=== PATIENT | female | born 1955 | race Caucasian/White ===

== ENCOUNTER 2017-12-01 11:56 | Observation (INO) | payer SELFPAY ==
[~2017-12-01] VITALS: Ht 165.1 cm; Wt 64.5 kg
--- NOTE | 2017-12-01 13:21 | Diagnostic Imaging Report ---
Examination: CT head without contrast Clinical Indication: Fall. Weakness. Unsteady gait. Dizziness. History of stroke 5 years ago. Technique: Transaxial noncontrast images from the skull base through the vertex were obtained. Sagittal and coronal reformatted images were done. Dose modulation, iterative reconstruction, and/or weight based adjustment of the mA/kV was utilized to reduce the radiation dose to as low as reasonably achievable. Comparison: Head CT performed October 17, 2015. Findings: Scalp: No abnormalities. Bones: Intact. No fractures. No blastic or lytic lesions. Brain sulci: Moderate volume loss for patient's age. Ventricles: No hydrocephalus. Extra-axial space: No abnormalities. Parenchyma: Again demonstrated are confluent areas of low-attenuation within subcortical and periventricular white matter, nonspecific, but could represent microvascular ischemic disease. Cortical-based area of chronic encephalomalacia is demonstrated in the right middle and inferior occipital lobes. A chronic lacunar infarct is again demonstrated in the right striatocapsular region. No masses, hemorrhage, or acute cortical based vascular insults. Suprasellar region: No abnormalities. Craniocervical junction: The foramen magnum is patent. No Chiari one malformation. Incidental findings: Atherosclerotic calcification of the cavernous and supraclinoid internal carotid arteries. Impression: 1. No new acute intracranial finding when compared to prior head CT performed October 17, 2015. 2. Unchanged mild chronic microvascular ischemic change. Chronic right CELLO TEACHER territory infarct and right striatocapsular region lacunar infarct. Moderate generalized volume loss. Signed by: Dr. Teresa Zamorano M.D. on 12/01/2017 1:17 PM
--- NOTE | 2017-12-01 13:27 | Diagnostic Imaging Report ---
Examination: CT CERVICAL SPINE WITHOUT CONTRAST HISTORY:Fall. Weakness. COMPARISON:None. TECHNIQUE: Multidetector helical axial images were obtained without contrast from the foramen magnum to T1. Coronal and sagittal reformatted images were done. Bone and soft tissue windows were evaluated. Dose modulation, iterative reconstruction, and/or weight based adjustment of the mA/kV was utilized to reduce the radiation dose to as low as reasonably achievable. FINDINGS: Alignment:Normal alignment with straightening of normal lordosis. Vertebrae: Normal height and density. No acute fracture, infection or neoplasm. Disc space heights: Normal height. Caliber of spinal canal: Developmentally normal. Posterior fossa and craniocervical junction: Foramen magnum patent. No Chiari 1 malformation. Soft tissues: No abnormality. Degenerative changes: Anterior hyperostosis from C4 through T1. Degenerative left facet hyperostosis and fusion of the C2, C3, C4 and C5 vertebrae. Disc osteophyte complexes at C5-C6 and C6-C7 with moderate bilateral foraminal narrowing at C6-C7. No canal stenosis. The remaining cervical levels demonstrate no disc bulge/ herniation or canal stenosis. IMPRESSION: 1. No acute abnormalities. 2. Degenerative changes, as above. Signed by: Dr. Teresa Zamorano M.D. on 12/01/2017 1:23 PM
--- NOTE | 2017-12-01 13:39 | Diagnostic Imaging Report ---
Examination: Single AP view of the chest. COMPARISON: None. INDICATION: Fall DISCUSSION: The lungs are well-inflated. No focal airspace consolidation, pleural effusion, or pneumothorax. Cardiomediastinal contour and pulmonary vasculature are within normal limits. No acute osseous abnormalities. IMPRESSION: 1. No acute cardiopulmonary abnormalities. Signed by: Dr. Nikhil Fernandez M.D. on 12/01/2017 1:36 PM
[2017-12-01 13:58] LABS: BASOPHILS # (AUTO) 0.1 (0.0-0.1); BASOPHILS % 0.6 % (0.0-1.0); EOSINOPHILS # (AUTO) 0.2 (0.0-0.4); EOSINOPHILS % 1.8 % (0.0-6.0); HEMATOCRIT 44.4 % (34.2-44.1); HEMOGLOBIN 14.6 g/dL (12.0-16.0); LYMPHOCYTES # (AUTO) 3.4 (1.0-3.2); LYMPHOCYTES % 30.6 % (18.0-39.1); MEAN CORPUSCULAR HEMOGLOBIN 28.1 pg (28-32); MEAN CORPUSCULAR HGB CONC 32.9 g/dL (31-35); MEAN CORPUSCULAR VOLUME 85.5 fL (81-99); MONOCYTES # (AUTO) 0.6 (0.2-0.8); MONOCYTES % 5.6 % (4.4-11.3); NEUTROPHILS # (AUTO) 6.8 (2.1-6.9); PLATELET COUNT 191 x10e3/uL (140-360); RED BLOOD COUNT 5.19 x10e6/uL (3.6-5.1); RED CELL DISTRIBUTION WIDTH 12.9 % (11.7-14.4)
[2017-12-01 14:11] LABS: INR 0.97; PROTHROMBIN TIME 12.1 seconds (11.9-14.5)
[2017-12-01 14:14] LABS: PARTIAL THROMBOPLASTIN TIME 22.1 seconds (23.8-35.5)
[2017-12-01 14:26] LABS: ALANINE AMINOTRANSFERASE 12 IU/L (0-55); ALBUMIN 3.6 g/dL (3.5-5.0); ALBUMIN/GLOBULIN RATIO 0.9 (0.8-2.0); ALKALINE PHOSPHATASE 76 IU/L (40-150); ANION GAP 14.5 mmol/L (8-16); BLOOD UREA NITROGEN 11 mg/dL (7-26); BUN/CREATININE RATIO 10 (6-25); CALCIUM 9.6 mg/dL (8.4-10.2); CARBON DIOXIDE 25 mmol/L (22-29); CHLORIDE 93 mmol/L (98-107); CREATINE KINASE 56 IU/L (29-168); CREATININE, SERUM 1.05 mg/dL (0.57-1.11); EST GLOMERULAR FILTRATION RATE 53 ML/MIN (60-); LIPASE 20 U/L (8-78); POTASSIUM 4.5 mmol/L (3.5-5.1); SODIUM 128 mmol/L (136-145)
[2017-12-01 14:30] LABS: GLUCOSE 574 mg/dL (74-118)
[2017-12-01 14:46] LABS: THYROID STIMULATING HORMONE 4.497 uIU/mL (0.350-4.940)
[2017-12-01] MEDS: INSULIN REGULAR, HUMAN 100 UNIT/1 ML 3ML VIAL IV ONE ×2 (14:54→15:02)
[2017-12-01 14:57] LABS: BILIRUBIN,URINE NEGATIVE (NEGATIVE); CLARITY,URINE SL CLOUDY (CLEAR); COLOR,URINE YELLOW (YELLOW); KETONES,URINE NEGATIVE (NEGATIVE); LEUKOCYTE ESTERASE ,URINE NEGATIVE (NEGATIVE); NITRITE,URINE POSITIVE (NEGATIVE); PROTEIN,URINE DIPSTICK NEGATIVE (NEGATIVE); URINE UROBILINOGEN 0.2 mg/dL (0.2 - 1)
[2017-12-01] MEDS: SODIUM CHLORIDE 0.9% 1000ML 1,000 ML IV SCH (14:57)
[2017-12-01] MEDS ORDERED: INSULIN REGULAR, HUMAN 100 UNIT/1 ML 3ML VIAL SQ ONE (15:00)
[2017-12-01] MEDS ORDERED: DEXTROSE 50% SYRINGE 50 ML IV PRN ×2 (15:00→15:15)
[2017-12-01 15:04] LABS: BACTERIA,URINE MANY /HPF; WBC,URINE (MAN) 0-5 /HPF (0-5)
[2017-12-01 15:22] LABS: CHOL/HDL RATIO 5.8 (3.0-3.6)
--- NOTE | 2017-12-01 15:51 | History and Physical ---
PRIMARY CARE PHYSICIAN: None. CHIEF COMPLAINT: Difficulty walking. HISTORY OF PRESENT ILLNESS: This is a 62-year-old woman with a history of diabetes mellitus type 2 and a history of stroke in 2013 with residual facial asymmetry, now developing difficulty ambulating. Patient states that she first noticed difficulty walking straight last week. Therefore, she attempted to make an appointment with her neurologist, Dr. Raza. However, he is retired. Therefore, she was unable to obtain an appointment. She also had had a colostomy. Now this morning she fell twice without any headache. She did have some nausea and vomiting. Therefore, she came to the hospital. She is admitted for further evaluation and management. PAST MEDICAL HISTORY: Diabetes mellitus type 2, stroke in 2013 with residual facial asymmetry. PAST SURGICAL HISTORY: Tonsillectomy. ALLERGIES: PER THE ELECTRONIC MEDICAL RECORDS. FAMILY HISTORY/SOCIAL HISTORY: Patient is single. She has no children. No alcohol, illicit drugs or cigarettes. She lives alone. MEDICATIONS: Per the electronic medical records. Medications reviewed. REVIEW OF SYSTEMS: Denies any fever, chills, sweats. Denies any back pain, headache, vision changes. Denies any leg pain. Denies any cough or chest pain. VITAL SIGNS: Have been reviewed. PHYSICAL EXAMINATION GENERAL APPEARANCE: A tired-appearing woman resting in bed. HEENT: Anicteric. Pupils responsive to light. No oral lesions. CARDIOVASCULAR: Normal S1/S2. LUNGS: Moderate breath sounds. ABDOMEN: Soft, nontender, nondistended. EXTREMITIES: No edema or calf tenderness. NEUROLOGICALLY: Alert and oriented x3. She moves all extremities. Motor strength is 5/5 in all extremities, minimally reduced in the left leg. She has visual field deficits in the left lateral nichols of the left eye on visual field testing. She has facial asymmetry when smiling. SKIN: Dry. PSYCHIATRIC: Normal affect. LABS: Reviewed. ASSESSMENT: This is a 62-year-old woman. 1. Fall. 2. History of stroke. 3. Gait disturbance. 4. Visual field deficits in the left eye, unclear whether new or old. 5. Uncontrolled diabetes with a glucose of 574. 6. Acute kidney injury. 7. Overweight state. PLAN 1. Follow up echocardiogram and a still operator brandy now. 2. Get neurology consultation. 3. Will utilize aspirin, blood pressure control. 4. Rehydrate patient. 5. Start insulin regimen at 8 units of Levemir and a diabetic diet. 6. Utilize sliding-scale insulin. 7. Follow up urinalysis. 8. Physical therapy consultation. 9. Consider MRI. 10. Will utilize Lovenox and Pepcid for prophylaxis. 11. Disposition. Follow up neurology recommendations. Job#: [id number] EV
[2017-12-01 17:01] VITALS: BP 158/88
[2017-12-01] MEDS: ENOXAPARIN SOD INJ 40 MG/0.4 ML SYR SC SCH (17:08)
[2017-12-01] MEDS: FAMOTIDINE 20 MG/2 ML VIAL IV SCH (17:08)
[2017-12-01 17:22] VITALS: BP 147/68
[2017-12-01] MEDS: INSULIN REGULAR, HUMAN 100 UNIT/1 ML 3ML VIAL SQ SCH ×2 (17:24→20:39)
[2017-12-01 17:28] VITALS: BP 147/68
[2017-12-01 19:46] VITALS: BP 137/65
[2017-12-01 22:21] LABS: CREATINE KINASE 58 IU/L (29-168)
[2017-12-02] VITALS (7 sets, daily range): BP systolic 119–187; BP diastolic 62–84
[2017-12-02] MEDS: SODIUM CHLORIDE 0.9% 1000ML 1,000 ML IV SCH ×2 (00:45→11:18)
[2017-12-02] MEDS ORDERED: PROMETHAZINE 12.5MG/ NACL 0.9% 12.5 MG/50 ML BAG IV PRN (01:15)
[2017-12-02] MEDS ORDERED: ACETAMINOPHEN 325 MG TAB PO PRN (01:15)
[2017-12-02] MEDS ORDERED: LABETALOL HCL 5 MG/ML 20ML VIAL IV PRN (01:15)
[2017-12-02 04:54] LABS: BASOPHILS # (AUTO) 0.1 (0.0-0.1); BASOPHILS % 0.7 % (0.0-1.0); EOSINOPHILS # (AUTO) 0.2 (0.0-0.4); EOSINOPHILS % 1.6 % (0.0-6.0); HEMATOCRIT 40.6 % (34.2-44.1); HEMOGLOBIN 13.5 g/dL (12.0-16.0); LYMPHOCYTES # (AUTO) 4.3 (1.0-3.2); LYMPHOCYTES % 31.4 % (18.0-39.1); MEAN CORPUSCULAR HEMOGLOBIN 28.2 pg (28-32); MEAN CORPUSCULAR HGB CONC 33.3 g/dL (31-35); MEAN CORPUSCULAR VOLUME 84.8 fL (81-99); MONOCYTES # (AUTO) 0.7 (0.2-0.8); MONOCYTES % 5.2 % (4.4-11.3); NEUTROPHILS # (AUTO) 8.2 (2.1-6.9); NEUTROPHILS % 60.8 % (38.7-80.0); PLATELET COUNT 343 x10e3/uL (140-360); RED BLOOD COUNT 4.79 x10e6/uL (3.6-5.1)
[2017-12-02 05:16] LABS: ALANINE AMINOTRANSFERASE 13 IU/L (0-55); ALBUMIN 3.3 g/dL (3.5-5.0); ALBUMIN/GLOBULIN RATIO 1.1 (0.8-2.0); ALKALINE PHOSPHATASE 61 IU/L (40-150); ANION GAP 16.5 mmol/L (8-16); BLOOD UREA NITROGEN 9 mg/dL (7-26); BUN/CREATININE RATIO 12 (6-25); CALCIUM 8.8 mg/dL (8.4-10.2); CARBON DIOXIDE 20 mmol/L (22-29); CHLORIDE 103 mmol/L (98-107); CREATININE, SERUM 0.74 mg/dL (0.57-1.11); EST GLOMERULAR FILTRATION RATE > 60 ML/MIN (60-); GLUCOSE 258 mg/dL (74-118)
[2017-12-02 05:37] LABS: POTASSIUM 3.5 mmol/L (3.5-5.1); SODIUM 136 mmol/L (136-145)
[2017-12-02 05:44] LABS: CREATINE KINASE 60 IU/L (29-168)
[2017-12-02] MEDS: ASPIRIN 325 MG TAB PO SCH (08:11)
[2017-12-02] MEDS: FAMOTIDINE 20 MG/2 ML VIAL IV SCH ×2 (08:11→16:12)
[2017-12-02] MEDS: INSULIN DETEMIR 100 UNIT/ML PEN SQ SCH (09:37)
[2017-12-02] MEDS: INSULIN REGULAR, HUMAN 100 UNIT/1 ML 3ML VIAL SQ SCH ×4 (09:37→21:12)
[2017-12-02 12:11] LABS: CREATINE KINASE 62 IU/L (29-168)
[2017-12-02] MEDS ORDERED: LORAZEPAM INJ 2 MG/ML VIAL IV ONE (14:00)
--- NOTE | 2017-12-02 15:34 | Diagnostic Imaging Report ---
History: Stroke Comparison studies: CT head 12/01/2017 Technique: Sagittal T2; axial DWI, FLAIR, MPGR, T1, Coronal FLAIR. Intravenous contrast: None Findings: Scalp: Normal in signal . No masses . Bone marrow: Normal in signal intensity. Extra-axial: Restricted diffusion at the right gordillo radiata, centrum semiovale and subinsular region with associated FLAIR hyperintensity. Scattered T2/flair hyperintensities of the periventricular and deep white matter, similar changes are seen seen in the freddie. Cortical-based FLAIR hyperintensity at the right lateral occipital lobe with associated volume loss. Chronic lacunar infarct at the right striatocapsular region. Brain sulci: Mildly prominent. Ventricles: Mildly prominent . No hydrocephalus . Parenchyma: No abnormal signal intensities. No masses, hemorrhage, acute or chronic vascular insults. Suprasellar region: No abnormalities. Craniocervical junction: No abnormalities. Patent foramen magnum. No Chiari one malformation. Vessels: Normal flow-voids in the arteries and sinuses. Mucosal thickening of the left maxillary sinus. IMPRESSION: 1. Right gordillo radiata, centrum semiovale and subinsular acute infarct in the MCA distribution. No hemorrhage. 2. Moderate chronic microvascular ischemic changes of the white matter. 3. Chronic insult in the right lateral occipital lobe. Chronic lacunar infarct at the right striatocapsular region. The above finding was reported and acknowledged by MARY King at 3:28 PM 12/02/2017 Signed by: DR Celestine Ramos M.D. on 12/02/2017 3:30 PM
--- NOTE | 2017-12-02 16:05 | Consultation ---
DATE OF CONSULTATION: December 02, 2017 NEUROLOGY CONSULTATION HISTORY OF PRESENT ILLNESS: Ms. Landers is a 62-year-old [id number] woman with past medical history significant for hypertension, hyperlipidemia, diabetes mellitus type 2, and a prior stroke with residual left facial droop, admitted to [facility] on December 01, 2017, with symptoms concerning for stroke. Approximately 1 week prior to admission, the patient experienced the sudden onset of an unsteady gait, poor balance, and "walking into the gonzalez on my left." In addition to these symptoms, Ms. Landers endorses weakness of the left arm and leg as well as incoordination of the left arm and leg. The patient does not report a visual field cut or other disturbance, dysarthria, aphasia, worsening facial droop, hemihypesthesia, dizziness, or confusion. Ms. Landers presented to the emergency center at [facility] on December 01, 2017, for further evaluation of her symptoms. Upon her arrival on the emergency center, the patient was afebrile with a blood pressure of 119/71 mmHg and a pulse of 104 beats per minute. Her neurological examination is not documented. A CT of the brain without contrast was performed while the patient was in the emergency center. It did not show evidence of recent large territorial ischemia or hemorrhage. Ms. Landers was admitted to [facility] for further evaluation and treatment of her symptoms. Ms. Landers does not report experiencing similar symptoms previously. She does report a prior stroke in 2012. The only symptom she can recall from that presentation is a left facial droop. Ms. Landers was hospitalized at [facility] for the prior stroke. Upon her discharge, the patient was not instructed to take either antiplatelet or anticoagulant medications. Unfortunately, the medical records from this hospitalization are unavailable for review. History of his hospitalization is obtained from the patient, who admits to having poor memory regarding this hospitalization. REVIEW OF SYSTEMS: Weakness and incoordination of the left arm and left leg, impairment of balance and gait. Otherwise the 12-point review of systems is negative. PAST MEDICAL HISTORY: Hypertension, hyperlipidemia, diabetes mellitus type 2, thyroid disease, mixed depression/anxiety disorder, and a prior stroke with residual left facial droop. Ms. Landers does not have health insurance and does not see a physician on a routine basis. She reports last seeing a doctor approximately 1 year ago. PAST SURGICAL HISTORY: Tonsillectomy. PAST HOSPITALIZATIONS: Surgeries/procedures as listed, stroke in 2013, multiple hospitalizations for bronchitis as a child. FAMILY MEDICAL HISTORY: The patient's paternal and maternal grandparents are . The paternal and maternal grandfathers are both from coronary artery disease with myocardial infarctions. The paternal grandmother is from gastrointestinal cancer. The maternal grandmother is from postoperative complications. Ms. Landers's father is from atrial fibrillation causing a myocardial infarction. Her mother is alive. She has hypertension and dementia. Ms. Landers has 1 sister. She is living and has bipolar disorder. The patient has no biological children. SOCIAL HISTORY: The patient is single. She works in [employer]. The patient does not report current or prior tobacco or recreational drug use. The patient endorses rare alcohol use. HOME MEDICATIONS: Metoprolol, a statin, pioglitazone. ALLERGIES: PENICILLIN. NO KNOWN FOOD ALLERGIES. NO KNOWN ALLERGIES TO LATEX. MS. LANDERS DOES REPORT AN IODINE ALLERGY. PHYSICAL EXAMINATION VITAL SIGNS: Height 65 inches, weight 144 pounds, BMI 24.0 kg per meter squared. Blood pressure 128/70 mmHg, pulse 73 beats per minute, respiratory rate 18 breaths per minute, oxygen saturation 96% on room air. GENERAL: The patient is awake and alert, does not appear distressed. Poor eye contact. HEENT: Normocephalic, atraumatic. Pupils are equal, round, and reactive to light. Moist mucous membranes. NECK: Supple. No appreciable thyromegaly. No appreciable carotid bruits. CARDIOVASCULAR: S1, S2, regular rate and rhythm. No murmurs, rubs, or gallops. RESPIRATORY: Clear to auscultation bilaterally. No wheezes, rhonchi, or rales. EXTREMITIES: The skin is warm and dry. No clubbing, cyanosis, or edema. The posterior tibial and dorsalis pedis pulses are 1+ and symmetric. SKIN: There are 3 or 4 healed linear lesions on the dorsal surface of the patient's left forearm. One lesion is oriented vertically. The remainder are oriented horizontally. NEUROLOGIC MEMORY/ATTENTION: The patient is awake and alert, oriented to person, place, time, and situation. CRANIAL NERVES: Cranial nerve 1--Not tested. Cranial nerve 2, 3, 4, and 6--Pupils are equal and round, react briskly to light (from 4 mm to 2 mm). Extraocular movements intact. Esotropia of the left eye (per the patient, congenital). No nystagmus. Cranial nerve 5--Sensation to light touch and pinprick is intact in the bilateral V1 through V3 distributions. Strength of the temporalis and masseter muscles is within normal limits. Cranial nerve 7--There is left facial asymmetry with moderately severe left central facial weakness. Cranial nerve 8--Hearing is diminished to finger rub bilaterally. Cranial nerve 9, 10--The soft palate elevates equally and symmetrically. Cranial nerve 11--Normal strength of the bilateral sternocleidomastoid and trapezius muscles. Cranial nerve 12--The tongue protrudes midline and moves symmetrically from side to side. STRENGTH: Bulk is normal. Strength is 5/5 in the right deltoid, biceps, triceps, wrist flexors and extensors, finger flexors and extensors, intrinsic hand muscles, hip flexors, knee flexors and extensors, ankle dorsiflexion and plantarflexion, and intrinsic foot muscles. The left arm flexors are 4+/5, left arm extensors 4/5. Left leg flexors 4/5. Left leg extensors 4+/5. Tone is increased in the left arm and left leg. DTRS: Deep tendon reflexes are 1+ and symmetric at the triceps, biceps, brachial radialis, and patellas. Deep tendon reflexes are absent and symmetric at the Achilles. Plantar responses are flexor on the right, extensor on the left. SENSATION: Sensation is intact to light touch and pinprick in both arms and both legs. CEREBELLAR: Otkzyu-ypjj-jfmnit and heel-pérez movements are slowed on the left but otherwise without dysmetria or other impairment. GAIT: Deferred. SPEECH: Spontaneous speech is normal without appreciable dysarthria or aphasia. Repetition is intact. INVOLUNTARY MOVEMENTS: None. PRONATOR DRIFT: Left arm. LABORATORY DATA: The patient's complete metabolic panel is significant for a carbon dioxide of 20, an anion gap of 16.5, and a serum glucose of 258. Otherwise, the complete metabolic panel is unremarkable. Cardiac enzymes are negative x3. Insulin level 9.7. B-natriuretic peptide less than 10.0. Lipase 20. TSH 4.497. Hemoglobin A1c 14.5. Total cholesterol 306, triglycerides 153, LDL cholesterol 222, HDL cholesterol 53. The CBC with differential and platelets reveals an elevated white blood cell count of 13.55 with a normal differential. The hemoglobin and hematocrit are 13.5 and 40.6, respectively. The platelet count is 343. PT 12.1, INR 0.97, PTT 22.1. A urinalysis is significant for 3+ glucose, positive nitrites, and many urine bacteria. A urine culture has grown gram-negative bacilli. DIAGNOSTIC STUDIES Electrocardiogram December 01, 2017: Normal sinus rhythm at 90 beats per minute with occasional premature ventricular contractions. Chest x-ray December 01, 2017: No acute cardiopulmonary abnormalities. CT of the brain without contrast December 01, 2017: On my review, there is no evidence of recent large territorial ischemia, hemorrhage, mass, or mass effect. There are chronic infarcts in the right posterior cerebral artery distribution as well as the right striatocapsular region. There is diffuse cerebral atrophy, more than expected for age. There are findings compatible with moderate to severe chronic small-vessel ischemic disease. CT of the cervical spine December 01, 2017: (1) No acute abnormalities. (2) Degenerative changes as described above. Echocardiogram December 02, 2017: Ejection fraction 65% to 70%. No significant valvular disease. Bilateral carotid artery ultrasound with Doppler December 02, 2017: Report pending. ASSESSMENT AND PLAN: Ms. Landers is a 62-year-old [id number]-vwvfttuo woman with multiple uncontrolled vascular risk factors, admitted to [facility] on December 01, 2017, with new-onset left hemiparesis, incoordination of the left arm and left leg, and impairment of balance and gait. The patient's neurological examination is significant for left facial asymmetry with moderate left central facial weakness, mild weakness of the left arm and left leg, extensor plantar response on the left, slowing of kbiure-qzfm-byjchk and heel-pérez movements on the left, and positive pronator drift in the left arm. The patient's laboratory data and other diagnostic studies have been reviewed and are documented above. Recommendations are as follows: 1. An MRI of the brain without contrast will be ordered to complete the patient's stroke evaluation as well as to identify the area of new stroke. 2. I agree with treatment with aspirin 325 mg by mouth daily for stroke prophylaxis. 3. The patient's goal blood pressure is less than 140/90 mmHg. Since the patient's symptoms began approximately 1 week ago, we may begin to gradually normalize her blood pressure. Continue to monitor vital signs per unit protocol. 4. The patient's goal total cholesterol is less than 200 with an LDL of less than 70. Ms. Landers will be prescribed atorvastatin 80 mg by mouth at bedtime daily for treatment of hyperlipidemia/dyslipidemia. A repeat cholesterol panel should be drawn in approximately 8 weeks. 5. The patient's goal hemoglobin A1c is less than 7.0. Treatment of the patient's diabetes mellitus will be deferred to the primary service. 6. A physical therapy consultation has been ordered and is pending. As the patient has no language deficits, a speech therapy consultation is not necessary. 7. GI prophylaxis with Pepcid 20 mg by mouth twice daily. DVT prophylaxis with Lovenox 40 mg subcutaneously daily. 8. Defer treatment of the remaining medical comorbidities to the primary and other services following the patient. 9. Based on the patient's laboratory data, it is apparent Ms. Landers has not made the effort to follow up with a physician, or physicians, nor is she taking any medications for her multiple medical problems. Ms. Landers and I had a pavithra discussion regarding the patient's need to comply with the medication regimen as well as following up with a physician, or physicians. The patient and I discussed the possible consequences should she fail to better manage her multiple medical problems. Thank you for this consultation. I will continue to follow the patient while she remains in the hospital. Time spent: 70 minutes. Job#: [id number] EV ELLIS
[2017-12-02] MEDS: ENOXAPARIN SOD INJ 40 MG/0.4 ML SYR SC SCH (16:12)
[2017-12-02] MEDS ORDERED: ATORVASTATIN 40 MG TAB PO SCH (21:00)
[2017-12-03 01:04] VITALS: BP 118/57
[2017-12-03 05:50] LABS: ANION GAP 13.3 mmol/L (8-16); BLOOD UREA NITROGEN 11 mg/dL (7-26); BUN/CREATININE RATIO 15 (6-25); CALCIUM 9.3 mg/dL (8.4-10.2); CARBON DIOXIDE 24 mmol/L (22-29); CHLORIDE 105 mmol/L (98-107); CREATININE, SERUM 0.72 mg/dL (0.57-1.11); EST GLOMERULAR FILTRATION RATE > 60 ML/MIN (60-); GLUCOSE 211 mg/dL (74-118); POTASSIUM 3.3 mmol/L (3.5-5.1); SODIUM 139 mmol/L (136-145)
[2017-12-03 06:54] VITALS: BP 129/63
[2017-12-03 08:00] VITALS: BP 113/76
[2017-12-03] MEDS: ASPIRIN 325 MG TAB PO SCH (08:21)
[2017-12-03] MEDS: INSULIN DETEMIR 100 UNIT/ML PEN SQ SCH (08:21)
[2017-12-03] MEDS: FAMOTIDINE 20 MG/2 ML VIAL IV SCH ×2 (08:21→16:48)
[2017-12-03] MEDS: INSULIN REGULAR, HUMAN 100 UNIT/1 ML 3ML VIAL SQ SCH ×3 (08:22→16:47)
[2017-12-03] MEDS: SODIUM CHLORIDE 0.9% 1000ML 1,000 ML IV SCH ×2 (10:03→16:47)
[2017-12-03 12:00] VITALS: BP 130/71
[2017-12-03 13:02] LABS: BASOPHILS # (AUTO) 0.1 (0.0-0.1); BASOPHILS % 0.8 % (0.0-1.0); EOSINOPHILS # (AUTO) 0.6 (0.0-0.4); EOSINOPHILS % 5.1 % (0.0-6.0); HEMATOCRIT 44.1 % (34.2-44.1); HEMOGLOBIN 14.1 g/dL (12.0-16.0); LYMPHOCYTES # (AUTO) 4.3 (1.0-3.2); LYMPHOCYTES % 36.5 % (18.0-39.1); MEAN CORPUSCULAR HEMOGLOBIN 27.9 pg (28-32); MEAN CORPUSCULAR VOLUME 87.2 fL (81-99); MONOCYTES # (AUTO) 0.8 (0.2-0.8); MONOCYTES % 6.8 % (4.4-11.3); NEUTROPHILS % 50.5 % (38.7-80.0); PLATELET COUNT 348 x10e3/uL (140-360); RED BLOOD COUNT 5.06 x10e6/uL (3.6-5.1); RED CELL DISTRIBUTION WIDTH 13.2 % (11.7-14.4)
[2017-12-03] MEDS ORDERED: POTASSIUM CHLORIDE 20 MEQ TAB CR PO ONE (13:20)
[2017-12-03 16:00] VITALS: BP 114/52
[2017-12-03] MEDS ORDERED: INSULIN ASPART 70/30 100 UNITS/ML VIAL SC SCH (16:30)
[2017-12-03] MEDS: ENOXAPARIN SOD INJ 40 MG/0.4 ML SYR SC SCH (16:49)
--- NOTE | 2017-12-07 00:33 | Progress Note ---
DATE: December 02, 2017 TIME: 7:40 a.m. OVERNIGHT: No events. REVIEW OF SYSTEMS: Denies any dizziness, chest pain. Denies any fever, chills, sweats, nausea, vomiting, diarrhea. PHYSICAL EXAMINATION: VITAL SIGNS: Reviewed. GENERAL APPEARANCE: Tired-appearing woman resting in bed. HEENT: Anicteric. CARDIOVASCULAR: Normal S1 and S2. LUNGS: Moderate breath sounds. ABDOMEN: Soft, nontender, nondistended. EXTREMITIES: No edema or calf tenderness. NEUROLOGICAL: Alert and oriented x3. Moving all extremities. Motor function appears normal in the extremities. She does have visual field deficit in the left field of the left eye. SKIN: Dry. PSYCHIATRIC: Flat affect. LABS: Reviewed. MEDICATIONS: Reviewed. ASSESSMENT: A 62-year-old woman. 1. Fall. 2. History of stroke. 3. Gait disturbance. 4. Visual field deficit in left eye. 5. Uncontrolled diabetes with glucose 574. 6. Acute kidney injury. 7. Overweight state. PLAN: 1. Continue IV fluids. 2. Follow up echocardiogram. 3. Follow up further imaging. 4. Follow up neurology recommendation. Job#: [id number]
--- NOTE | 2017-12-07 00:41 | Discharge Summary ---
PRINCIPAL DIAGNOSES: 1. Escherichia coli urinary tract infection. 2. Acute ischemic stroke. 3. Visual field deficit from the left eye to the left side. 4. Uncontrolled diabetes mellitus. Hemoglobin A1c 9.3, LDL 222, and triglycerides 153. 5. Overweight state. 6. Acute kidney injury. SECONDARY DIAGNOSIS: Diabetes mellitus type 2. CHIEF COMPLAINT: Difficulty with walking. HISTORY OF PRESENT ILLNESS: A 62-year-old woman with difficulty with walking. Please refer to H and P for further details. HOSPITAL COURSE: Patient found to have E. coli urinary tract infection, also found to have acute ischemic stroke, treated with medication regimen. She had glucose, which was uncontrolled at 574, hemoglobin A1c and LDL as noted above. Patient counseled on medication compliance. She had left visual field deficit of the left eye. Recommended to avoid driving for 3 months at least and have re-testing during that period. She was overweight. Had acute kidney injury, renal function improved with IV fluids. Patient received antibiotics for the infection in the urine and received physical therapy. DISCHARGE MEDICATIONS: Per electronic medical record. FOLLOWUP: With primary care doctor in 1 week. CONDITION ON DISCHARGE: Stable and improving. DISCHARGE LOCATION: Home. MUNIR CROOKS MD Job#: [id number]
== END 2017-12-03 17:58 | disposition home or self-care (01) ==
LOC: ER 11:56 → ERHOLD 14:43 → MED/SURG2 16:38
PROVIDERS: ADMIT Internal Medicine; ATTEND Internal Medicine
DX: I63.511 Cerebral infarction due to unspecified occlusion or stenosis of right middle cerebral artery (principal); E11.65 Type 2 diabetes mellitus with hyperglycemia; Z91.81 History of falling; R26.81 Unsteadiness on feet; I69.392 Facial weakness following cerebral infarction; H54.62 Unqualified visual loss, left eye, normal vision right eye; N17.9 Acute kidney failure, unspecified; E66.3 Overweight; I10 Essential (primary) hypertension; E78.5 Hyperlipidemia, unspecified; Z88.0 Allergy status to penicillin; G81.94 Hemiplegia, unspecified affecting left nondominant side; Z68.23 Body mass index [BMI] 23.0-23.9, adult; N39.0 Urinary tract infection, site not specified; B96.20 Unspecified Escherichia coli [E. coli] as the cause of diseases classified elsewhere
CPT/HCPCS: 36415 ×3; 70450; 70551; 71045; 72125; 80048; 80053 ×2; 80061; 81001; 82550 ×2; 82553 ×2; 82948 ×3; 83036; 83525; 83690; 83880; 84443; 84484 ×2; 85025 ×3; 85610; 85730; 87086; 87186; 93005; 93306; 93880; 97116; 97162; 99284; G0378 ×3; J1650 ×3; J1815; J2060; J2550 ×2; J3490; J7030 ×2

== ENCOUNTER → 2021-12-11 | Outpatient (CLI) | payer MEDICARE | LOC: RAD 14:46 | PROVIDERS: ATTEND Internal Medicine | DX: R05.9 Cough, unspecified (principal) | CPT/HCPCS: 71046 ==

== ENCOUNTER → 2024-08-28 | Outpatient (REF) | payer MEDICARE | LOC: RAD 13:41 | PROVIDERS: ATTEND Internal Medicine | DX: Z01.818 Encounter for other preprocedural examination (principal) | CPT/HCPCS: 71046 ==